=== PATIENT | female | born 1950 | race Caucasian/White ===

== ENCOUNTER → 2016-12-04 | Day surgery (SDC) | payer BC ==
[2016-11-27 11:09] VITALS: Ht 160 cm; Wt 59.1 kg
[~2016-12-04] VITALS: Ht 160 cm; Wt 59.1 kg
[~2016-12-04] MED LIST: 500ML BSS 0.3ML EPI 1:1000PF IRRIG ONE; ACETAMINOPHEN 325 MG TAB PO PRN; AMVISC PLUS 0.8ML SYRINGE INT OCU ONE; ASCO500T3 PO; BETAXOLOL HCL 0.25% OP SUSP PER DROP CHARGE OPR SCH; BRIMONIDINE TART 0.2% OP SOLN PER DROP CHARGE ONE; BSS FLUSH ONE; BUPR150T5 PO; BUPR75TA20 PO; DIPH1TAB PO; DIPH25CA65 PO; DOCU100C PO; DOCU100C31 PO; ENDOCOAT 0.85ML SYRINGE INT OCU ONE; EpINEphrine INJ 1MG/ML AMP 1 MG/ML AMP ONE; KFLS250100 PO; LACTATED RINGER'S 1000ML 500 ML IV SCH; LEVO88TA3 PO; LIDOCAINE 4% OP SOLN DROP CHARGE ONE; LIDOCAINE 4% OP SOLN DROP CHARGE OPR SCH; LIDOCAINE HCL 1% MPF 2 ML VIAL ONE; MIDAZOLAM HCL 1 MG/ML 2ML VIAL ONE; MIX: 4ML BSS 1ML EPI 1:1000 PF INSTIL ONE; MOXIFLOXACIN OPH SOLN PER DROP CHARGE ONE; OCUCOAT 1 ML SOLN IO ONE; OMEG10007 PO; ONDA4TAB10 SL; PANT40TA PO; POVIDONE-IODINE OP SOLN 30 ML BTL ONE; PROPARACAINE 0.5% OP SOLN PER DROP CHARGE OPR SCH; RANI150T2 PO; TIMO0.5S2 OPB; TOBRAMYCIN/DEXAMETHASONE OPH OINT PER APPLN CHARGE ONE; ZOLP10TA PO
[2016-12-04] MEDS: PHENYLEPHRINE HCL 2.5% OP SOLN PER DROP CHARGE OPR SCH ×2 (07:20→07:25)
[2016-12-04] MEDS: TROPICAMIDE 1% OP SOLN PER DROP CHARGE OPR SCH ×2 (07:21→07:26)
[2016-12-04] MEDS: CYCLOPENTOLATE HCL 1% OP SOLN PER DROP CHARGE OPR SCH ×2 (07:22→07:27)
[2016-12-04] MEDS: MOXIFLOXACIN OPH SOLN PER DROP CHARGE OPR SCH ×2 (07:23→07:33)
--- NOTE | 2016-12-04 07:35 | History & Physical Bridge - [place] ---
H&P Re-Evaluation Bridge Note: I have examined the patient, reviewed the History & Physical and in the interval since the performance of the History & Physical I have noted the following changes of clinical significance: No changes noted
--- NOTE | 2016-12-04 08:17 | Discharge Instructions-SurgCtr ---
Discharge Instructions Visit Reason for Visit: Cataract Right Eye Discharge Discharge Diagnosis / Problem: lens implant right eye Discharge Goals Goal(s): Improve function Activity Recommendations Activity Limitations: resume your previous activity Lifting Limitations: no more than 10 pounds Exercise/Sports Limitations: gradually increase as tolerated May Resume Sexual Activity: when tolerated Shower/Bathe: tomorrow Driving or Machine Use: resume 1 day after discharge Anesthesia . Post Anesthesia Instructions: If you have had General Anesthesia or IV Sedation: * Do not drive today. * Resume driving when surgeon permits. * Do not make important decisions or sign legal documents today. * Call surgeon for: 1. Temperature elevations greater than 101 degrees F. 2. Uncontrollable pain. 3. Excessive bleeding. 4. Persistent nausea and vomiting. 5. Medication intolerance (nausea, vomiting or rash). * For nausea and vomiting use only clear liquids such as: tea, soda, bouillon until nausea subsides, then gradually increase diet as tolerated. * If you have any concerns or questions, call your surgeon's office. If physician is unavailable and it is an emergency, call 911 or go to the nearest emergency room. . Instructions / Follow-Up Instructions / Follow-Up ACTIVITY RECOMMENDATIONS: * Light activities. * Mild irritation and blurred vision are common for the first few days. * You may walk outside, read, watch television. * Redness around the white part of the eye is common. MEDICATIONS: Resume previous medications unless instructed otherwise by your surgeon. Start all eye drops at 1 pm today: * Eye drops (today and tomorrow): Prednisone - one drop in operative eye every 3 hours while awake Ofloxacin - one drop in operative eye every 3 hours while awake Bromsite - one drop in operative eye twice a day Continue Glaucoma drop, Timolol, in left eye as directed. SPECIAL CARE INSTRUCTIONS: * Tape plastic shield over eye to sleep at night. Call your doctor at with any concerns or problems. FOLLOW UP VISIT: Follow-up with Dr Grande at [place] office as scheduled. Diet Recommendations Home Diet: no limitations Procedures Procedures Performed: cataract extraction with lens implant Pending Studies Studies pending at discharge: no Medical Emergencies . Who to Call and When: Medical Emergencies: If at any time you feel your situation is an emergency, please call 911 immediately. . Non-Emergent Contact Non-Emergency issues call your: Icing Maker Call Non-Emergent contact if: your pain is not controlled [phone] . . "Provider Documentation" section prepared by Eduar Grande.
--- NOTE | 2016-12-04 08:19 | [facility] Operative Report ---
Operative Report 1. PREOPERATIVE DIAGNOSIS: Pre Senile nuclear cataract, right eye. 2. POSTOPERATIVE DIAGNOSIS: Pre Senile nuclear cataract, right eye. 3. PROCEDURE: Phacoemulsification of right cataract with posterior chamber lens implant, type [employer], model MX60, power +21.0 diopters. ANESTHESIA: Local standby. SURGEON: Dr. Grande. COMPLICATIONS: None. OPERATING TIME: 10 minutes. 4. OPERATION AND FINDINGS: DESCRIPTION OF PROCEDURE: The right pupil was dilated. The anesthetic was administered using a topical technique. The right eye was prepped and draped. A speculum was placed. A clear corneal incision was formed. The chamber was filled with Amvisc Plus and Endocoat. Epinephrine solution was used. A paracentesis was placed. A capsulorrhexis was performed. The nucleus was hydrodissected. The lens was removed with phacoemulsification. Time was 5.63 seconds. The aspiration unit was used to remove the cortex. The capsule was filled with Amvisc Plus. The lens implant was folded and placed into the capsule. The incision was hydrated. The Amvisc was aspirated. The wound was secure. The chamber was deep. The pupil was round. TobraDex ointment and Vigamox solution were placed. The speculum was removed. The patient was returned to the Recovery Room in stable condition. I attest to the content of the Intraoperative Record and any orders documented therein. Any exceptions are noted below. The scribe's documentation has been prepared in my presence, under my direction and personally reviewed by me in its entirety. I confirm that the note above accurately reflects all work, treatment, procedures, and medical decision making performed by me. I personally scribed for Eduar Grande M.D. (ALLIE) on 12/04/16 at 08:19. Electronically submitted by Laquita Juarez ([email or web address]).
[2016-12-04 08:20] VITALS: TEMP 36.8
[2016-12-04 09:01] VITALS: BP 113/75; PULSE 57; O2SAT 97
--- NOTE | 2016-12-04 09:02 | Anesthesia Progress Nt - [facility] ---
Anesthesia Post Op Note Date & Time Dec 04, 2016 at 09:03 Vital Signs Pain Intensity: 0 Vital Signs Past 12 Hours Date Time Temp Pulse Resp B/P Pulse Ox O2 Delivery O2 Flow Rate FiO2 12/04/16 08:20 36.8 64 16 103/70 96 Room Air 12/04/16 07:10 37.2 62 16 103/66 99 Room Air Notes Mental Status: alert / awake / arousable, participated in evaluation Pt Amnestic to Procedure: Yes Nausea / Vomiting: adequately controlled Pain: adequately controlled Airway Patency, RR, SpO2: stable & adequate BP & HR: stable & adequate Hydration State: stable & adequate Anesthetic Complications: no major complications apparent
== END | disposition home or self-care (01) ==
LOC: X.SURG 07:01
PROVIDERS: ATTEND Specialist
DX: H26.9 Unspecified cataract (principal); E03.9 Hypothyroidism, unspecified; Z90.89 Acquired absence of other organs; Z88.2 Allergy status to sulfonamides

== ENCOUNTER 2017-01-21 10:07 | Day surgery (SDC) | payer BC ==
[2017-01-06 10:26] VITALS: BMI 23.0
[~2017-01-21] VITALS: Ht 160 cm; Wt 59.1 kg
[~2017-01-21 10:07] MED LIST changes: -500ML BSS 0.3ML EPI 1:1000PF IRRIG ONE; -ACETAMINOPHEN 325 MG TAB PO PRN; -AMVISC PLUS 0.8ML SYRINGE INT OCU ONE; -BETAXOLOL HCL 0.25% OP SUSP PER DROP CHARGE OPR SCH; -BRIMONIDINE TART 0.2% OP SOLN PER DROP CHARGE ONE; -BSS FLUSH ONE; -BUPR150T5 PO; -DIPH1TAB PO; +DIPH1TAB87 PO; -DIPH25CA65 PO; -DOCU100C31 PO; -ENDOCOAT 0.85ML SYRINGE INT OCU ONE; -EpINEphrine INJ 1MG/ML AMP 1 MG/ML AMP ONE; +LACTATED RINGER'S 1000ML 1,000 ML IV SCH; -LACTATED RINGER'S 1000ML 500 ML IV SCH; -LIDOCAINE 4% OP SOLN DROP CHARGE ONE; -LIDOCAINE 4% OP SOLN DROP CHARGE OPR SCH; -LIDOCAINE HCL 1% MPF 2 ML VIAL ONE; -MIDAZOLAM HCL 1 MG/ML 2ML VIAL ONE; -MIX: 4ML BSS 1ML EPI 1:1000 PF INSTIL ONE; -MOXIFLOXACIN OPH SOLN PER DROP CHARGE ONE; -OCUCOAT 1 ML SOLN IO ONE; -ONDA4TAB10 SL; -POVIDONE-IODINE OP SOLN 30 ML BTL ONE; -PROPARACAINE 0.5% OP SOLN PER DROP CHARGE OPR SCH; -RANI150T2 PO; -TOBRAMYCIN/DEXAMETHASONE OPH OINT PER APPLN CHARGE ONE
[2017-01-21 10:26] VITALS: BP 126/76; PULSE 56; TEMP 36.6; O2SAT 99; Ht 160 cm; Wt 59.1 kg
[2017-01-21] MEDS ORDERED: ONDANSETRON INJ 2 MG/ML 2 ML VIAL IV PRN ×2 (11:45→14:45)
[2017-01-21] MEDS ORDERED: LACTATED RINGER'S 1000ML 1,000 ML IV PRN (11:45)
[2017-01-21] MEDS ORDERED: LIDOCAINE HCL 2% 2 ML VIAL (20MG/ML) ONE (13:13)
[2017-01-21] MEDS ORDERED: PROPOFOL IV EMULSION 10 MG/ML 20 ML VIAL IV ONE (13:13)
[2017-01-21] MEDS ORDERED: MIDAZOLAM HCL 1 MG/ML 2ML VIAL ONE (13:13)
[2017-01-21] MEDS ORDERED: SUCCINYLCHOLINE CHLORIDE 20 MG/ML 10 ML VIAL IV ONE (13:13)
[2017-01-21] MEDS ORDERED: ONDANSETRON INJ 2 MG/ML 2 ML VIAL ONE (13:13)
[2017-01-21] MEDS ORDERED: FENTANYL CITRATE INJ 50 MCG/1 ML 2 ML VIAL ONE ×2 (13:13)
[2017-01-21] MEDS ORDERED: DEXAMETHASONE SOD INJ 4 MG/ML VIAL ONE (13:13)
[2017-01-21] MEDS ORDERED: GELATIN SPONGE SZ 100 ONE (13:24)
[2017-01-21] MEDS ORDERED: LIDOCAINE/EPINEPHRINE 1% 20 ML VIAL ONE (13:25)
[2017-01-21] MEDS ORDERED: BACITRACIN OINT 15 GM TUBE ONE (13:25)
[2017-01-21] MEDS ORDERED: CEFAZOLIN SOD 1 GM VIAL ONE (13:53)
[2017-01-21] MEDS ORDERED: GLYCOPYRROLATE INJ 0.2 MG/ML VIAL ONE (14:06)
[2017-01-21] MEDS ORDERED: SODIUM CHLORIDE 0.9% 1000ML 1,000 ML IV SCH (14:37)
--- NOTE | 2017-01-21 14:37 | Discharge Instructions ---
Discharge Instructions Date of Service Jan 21, 2017. Admission Reason for Admission: Primary Hyerparathyroidism; Serum Calcium Elevated Discharge Discharge Diagnosis / Problem: Parathyroid adenoma, Primary Hyperparathryroidism Discharge Goals Goal(s): Therapeutic intervention Activity Recommendations Activity Limitations: as noted below (No strenuous activity for 2 weeks) Lifting Limitations: no more than 5 pounds Shower/Bathe: keep incision dry Driving or Machine Use: Do not drive while taking narcotic pain medication . Instructions / Follow-Up Instructions / Follow-Up Patient was instructed to begin taking 3 tums three times a day until her follow -up appointment Patient with follow up with Dr. Phillip Lombardo on 01/28/17 as scheduled at the [facility] E[facility] office. Current Hospital Diet Patient's current hospital diet: Discharge Diet Recommended Diet: Regular Diet Pending Studies Studies pending at discharge: no Medical Emergencies . Who to Call and When: Medical Emergencies: If at any time you feel your situation is an emergency, please call 911 immediately. . Non-Emergent Contact Non-Emergency issues call your: Primary Care Provider . . "Provider Documentation" section prepared by Meg Jasso. VTE Core Measure Inpt VTE Proph given/why not?: SCD's
[2017-01-21] MEDS ORDERED: HYDROCODONE/ACETAMOPHEN 5/325MG TAB PO PRN (14:45)
[2017-01-21] MEDS ORDERED: ACETAMINOPHEN 325 MG TAB PO PRN (14:45)
--- NOTE | 2017-01-21 15:31 | [facility] Post Operative Brief Note ---
Immediate Operative Summary Operative Date Jan 21, 2017. Pre-Operative Diagnosis Primary Hyperparathyroidism Post-Operative Diagnosis Primary Hyperparathyroidism Procedure(s) Performed Minimally Invasive Parathyroidectomy with Intraoperative Monitoring of the Recurrent Laryngeal Nerves Surgeon Dr. Phillip Lombardo [employer] Account Assistant Surgeon(s) Meg Jasso Estimated Blood Loss 10 ml Specimens PTH drawn by Dr. Hess at 1342 and sent out of room at 1343, call to lab at 1435 for result of PTH was 143.1. Dr. Lombardo aware Frozen section out of body at 1415, and out of room at 1419 to lab, Dr. Hui called and was given Dr. Bruno cell phone number at [phone] for results. This confirmed parathyroid adenoma. PTH second draw at 1435, per Rafal Maya CRNA and set out of room at 1436. Called lab at 1516 for results of PTH result of 18.[address] Lombardo at 1517 Permanent Specimen A: Parathyroid adenoma Drains None. Anesthesia General via endotracheal tube. Complication(s) None Disposition Recovery Room / PACU
[2017-01-21] MEDS: FENTANYL CITRATE INJ 50 MCG/1 ML 2 ML VIAL IV PRN ×3 (15:35→15:45)
--- NOTE | 2017-01-21 16:05 | Anesthesiology Progress Note ---
Anesthesia Post Op Note Date & Time Jan 21, 2017 at 16:04 Vital Signs Pain Intensity: 3 Vital Signs Past 12 Hours Date Time Temp Pulse Resp B/P Pulse Ox O2 Delivery O2 Flow Rate FiO2 01/21/17 15:55 75 14 143/65 94 Room Air 01/21/17 15:45 71 17 148/72 100 Mask 10 01/21/17 15:35 77 15 151/75 100 Mask 10 01/21/17 15:27 36.6 81 14 155/72 100 Mask 10 01/21/17 10:26 36.6 56 20 126/76 99 Room Air Notes Mental Status: alert / awake / arousable, participated in evaluation Pt Amnestic to Procedure: Yes Nausea / Vomiting: adequately controlled Pain: adequately controlled Airway Patency, RR, SpO2: stable & adequate BP & HR: stable & adequate Hydration State: stable & adequate Anesthetic Complications: no major complications apparent
[2017-01-21 16:10] VITALS: BP 126/68; PULSE 76; TEMP 36.6; O2SAT 96
[2017-01-21 16:40] VITALS: BP 127/61; PULSE 73; O2SAT 99
--- NOTE | 2017-01-21 17:05 | OPERATIVE REPORT ---
DATE OF OPERATION: 01/21/2017 SURGEON: Phillip Lombardo MD IRON CUTTER: Meg Jasso PA-C ANESTHESIA: General via endotracheal tube. PROCEDURE PERFORMED: Left minimally invasive parathyroidectomy with intraoperative monitoring of the recurrent laryngeal nerves. INDICATIONS FOR THE PROCEDURE: This is a 66-year-old woman who had had radiation to the neck in 1950s for chronic tonsillitis and also previously undergone total thyroidectomy. She developed hypercalcemia and a full workup concluded that she most likely had a parathyroid adenoma as the cause of her primary hyperparathyroidism. A full informed consent including indications, risks, benefits, and alternatives was provided in a relaxed office setting. There was an opportunity for questions and answers. REFERRING PLASMA TABLE OPERATOR: Pauline Marks MD at [facility]. REFERRING PRIMARY CARE: Breezy Crabtree MD at [facility]. PREOPERATIVE DIAGNOSIS: Left-sided parathyroid adenoma. POSTOPERATIVE DIAGNOSIS: Same. SPECIMENS SENT: Left parathyroid adenoma for frozen section as well as for permanent section. The frozen section confirmed parathyroid adenoma. Rapid PTH was drawn at the start of the case and the level was 143.1. Fifteen minutes after removal of her parathyroid adenoma, her PTH was 18.6. COUNTS: Sponge and needle count was correct at the end of the case. DRAINS: None. COMPLICATIONS: None. DESCRIPTION OF PROCEDURE: The patient had the planned incision drawn while she was sitting up in the preoperative area and I decided to use the left site of patient's previous thyroidectomy incision. She was taken to the operating room and had an uneventful endotracheal intubation with a [place] Scope to make sure that the endotracheal tube was positioned well to facilitate and monitor the recurrent laryngeal nerves. After a shoulder roll was placed, she was injected with 9 mL of 1% lidocaine 1:100,000 parts of epinephrine into the planned incision site. She was then prepped and draped in a standard fashion. A #15 blade was used to make an incision down through skin, subcutaneous tissue and platysma. Sternohyoid and sternothyroid muscles were retracted laterally and I went directly towards the site from her 3-dimensional reconstruction of her CT scan and SPECT PET CT and was able to easily identify the adenoma. This was dissected away with the use of LigaSure device, bipolar electrocautery, peanuts, and sharp dissection with scissors. The parathyroid adenoma was removed in its entirety. I irrigated the wound bed. I did not attempt to locate the recurrent laryngeal nerves, as they were deep to my surgical site and there was scar tissue. After removing all irrigation fluid, I packed the wound bed with Surgicel and closed the strap muscles with running 3-0 Vicryl suture. Platysma was closed with running 4-0 chromic suture. The dermis was closed using 4-0 chromic in a simple inverted buried technique. Skin was closed with interrupted 5-0 nylon and running 6-0 nylon suture. I then waited about 30 minutes for the rapid PTH to return and it confirmed a drop from 143.1 at the start of the surgery before dissection to 18.6. The combined drop of over 50% plus the frozen section analysis provided confidence that her primary hyperthyroidism was resolved. The surgical site was cleaned with hydrogen peroxide followed by alcohol and then dried. Bacitracin ointment followed by Telfa and Tegaderm was positioned. The patient was allowed to wake up on her own and was transported to recovery in no apparent distress. I attest to the content of the Intraoperative Record and any orders documented therein. Any exceptions are noted below. BRENDA
[2017-01-21 17:10] VITALS: BP 113/71; PULSE 71; TEMP 36.5; O2SAT 97
== END 2017-01-21 17:30 | disposition home or self-care (01) ==
LOC: C.ACU 10:07
PROVIDERS: ATTEND Otolaryngology
DX: D35.1 Benign neoplasm of parathyroid gland (principal); E21.0 Primary hyperparathyroidism; Z90.89 Acquired absence of other organs; Z90.710 Acquired absence of both cervix and uterus; Z98.49 Cataract extraction status, unspecified eye; F32.9 Major depressive disorder, single episode, unspecified; Z88.2 Allergy status to sulfonamides

== ENCOUNTER 2017-06-28 17:08 | Emergency (ER) | payer BC ==
[~2017-06-28] VITALS: Ht 157.5 cm; Wt 63.0 kg
[~2017-06-28 17:08] MED LIST changes: +DIPH1TAB PO; -DIPH1TAB87 PO; -LACTATED RINGER'S 1000ML 1,000 ML IV SCH
[2017-06-28 17:12] VITALS: TEMP 36.9; Ht 157.5 cm; Wt 63.0 kg
[2017-06-28] MEDS ORDERED: BUPR150T5 PO (17:28)
[2017-06-28] MEDS ORDERED: RANI150T2 PO (17:28)
[2017-06-28] MEDS ORDERED: ONDANSETRON 4MG OD TAB PO STA (17:46)
[2017-06-28] MEDS ORDERED: ALUMINUM/MAGNESIUM SUSP 30 ML UDC ONE (17:55)
[2017-06-28] MEDS ORDERED: LIDOCAINE HCL 2% VISC SOLN 20 ML UDC ONE (17:55)
[2017-06-28] MEDS ORDERED: GI COCKTAIL PO ONE (18:00)
[2017-06-28] MEDS ORDERED: SODIUM CHLORIDE 0.9% 1000ML 1,000 ML IV ONE (18:15)
[2017-06-28 18:31] LABS: BASO % 0.5 %; BASO ABS # 0.03 K/uL (0-0.2); COMPLETE YES; EOS % 0.9 %; HEMATOCRIT 37.1 % (37-47); IG% 0.2 %; LYMPH % 32.6 %; LYMPH ABS # 1.86 K/uL (1.2-3.4); MEAN CELL VOLUME 88.5 fL (80-100); MEAN CORPUSCULAR HEMOGLOBIN 31.5 pg (25-34); MEAN CORPUSCULAR HGB CONC 35.6 g/dl (32-36); MONO % 6.1 %; NEUT % 59.7 %; PLATELET COUNT 239 K/uL (130-400); RED BLOOD COUNT 4.19 M/uL (4.2-5.4)
--- NOTE | 2017-06-28 18:32 | DIAGNOSTIC IMAGING REPORT ---
CHEST ONE VIEW PORTABLE CLINICAL HISTORY: Atypical chest and neck pain. COMPARISON STUDY: 01/09/2016 FINDINGS: The cardiac and mediastinal contours are normal. There is no evidence of focal pulmonary consolidation. There is no evidence of failure. No pleural effusions are visualized.[ IMPRESSION: No active disease in the chest. Electronically signed by: Ronaldo Oconnor M.D. 06/28/2017 6:31 PM Dictated Date/Time: 06/28/2017 6:30 PM
[2017-06-28 18:52] LABS: ALT/SGPT 23 U/L (12-78); BLOOD UREA NITROGEN 10 mg/dl (7-18); BUN/CREATININE RATIO 14.6 (10-20); CALCIUM 9.6 mg/dl (8.5-10.1); CARBON DIOXIDE 27 mmol/L (21-32); CHLORIDE 96 mmol/L (98-107); CREATININE 0.71 mg/dl (0.60-1.20); GLUCOSE 94 mg/dl (70-99); POTASSIUM 3.9 mmol/L (3.5-5.1); SODIUM 129 mmol/L (136-145)
[2017-06-28 18:52] LABS: URINE APPEARANCE CLOUDY (CLEAR); URINE BILIRUBIN NEG (NEG); URINE COLOR YELLOW; URINE EPITHELIAL CELL AUTO 0-5 /lpf (0-5); URINE NITRITE NEG (NEG); URINE PH 8.5 (4.5-7.5); URINE SPECIFIC GRAVITY 1.007 (1.000-1.030); UROBILINOGEN NEG (NEG); ZZUR CULT IF INDIC CLEAN CATCH NO
[2017-06-28 18:59] LABS: MANUAL MICROSCOPIC REQUIRED? NO; REVIEW REQ? NO
[2017-06-28 19:03] LABS: ALB/GLOB RATIO 1.5 (0.9-2); ALKALINE PHOSPHATASE 84 U/L (45-117); AST/SGOT 16 U/L (15-37)
[2017-06-28] MEDS ORDERED: ONDA4TAB10 SL (19:25)
[2017-06-28] MEDS ORDERED: ONDANSETRON HOME PACK 4MG OD TAB PO ONE (19:30)
[2017-06-28 20:18] VITALS: BP 139/86; PULSE 58; O2SAT 99
--- NOTE | 2017-06-30 14:15 | EMERGENCY ROOM VISIT NOTE ---
History First contact with patient: 17:32 Chief Complaint: GI ASSESSMENT Stated Complaint: DIFFICULTY SWALLOWING,BURNING IN CHEST AREA Nursing Triage Summary: I have been dealing with acid reflux for the past 3-4 weeks. I am having trouble swallowing. "if feels like it is swollen I have burning in my throat all time and it is affecting my voice." having difficulty swallowing my food. I have been put on meds for acid reflux but it doesnt seem to be helping History of Present Illness The patient is a 66 year old female who presents to the Emergency Room with complaints of burning in her chest and throat for the past 3-4 weeks. The patient states that she has been seen multiple times by her primary care physician and diagnosed with acid reflux. She is on Protonix daily for this and just started Zantac 2 days ago. The patient states that it is difficult for her to swallow at times because of the discomfort. She is able to handle her own secretions and has not noticed changes in her voice. She has not had fever or chills. There is a past history of parathyroid disease with thyroidectomy, however this was sometime ago. She has not felt any mass or lumps in her neck. The patient has been breathing as normal. She does not have distinct chest pressure or tightness, again describing this as a burning sensation. She does not report significant abdominal pain. She rates her overall discomfort an 8/10. Review of Systems More than 10 systems were reviewed and otherwise negative with the exception of history of present illness. Past Medical/Surgical History Medical Problems: (1) Pre-diabetes Surgical Problems: (1) H/O thyroidectomy (2) History of appendectomy (3) Hx of cholecystectomy (4) Hx of total hysterectomy Family History Cancer Diabetes mellitus Gallbladder disease Heart disease Hypertension Kidney disease Social History Smoking Status: Never Smoker Alcohol Use: occasionally Marital Status: Housing Status: lives with significant other Occupation Status: employed Current/Historical Medications Scheduled Bupropion Hcl (Bupropion Hcl Xl), 150 MG PO DAILY Docusate Sodium (Stool Softener), 1-2 CAP PO HS Levothyroxine Sodium (Levothyroxine Sodium), 1 TAB PO QAM Ondasetron Odt (Zofran Odt), 4 MG SL Q6H Pantoprazole (Protonix), 40 MG PO QAM Ranitidine HCl (Ranitidine HCl), 150 MG PO DAILY Timolol Gfs 0.5% Oph (Timoptic-Xe 0.5% Oph), 1 DROP OPB QAM Scheduled PRN Zolpidem Tartrate (Ambien), 5 MG PO HS PRN for Sleep Physical Exam Vital Signs Date Time Temp Pulse Resp B/P (MAP) Pulse Ox O2 Delivery O2 Flow Rate FiO2 06/28/17 20:18 58 18 139/86 99 06/28/17 18:53 82 18 134/76 97 Room Air 06/28/17 17:12 36.9 102 18 161/92 97 Room Air Pain Rating (0-10): 6.0 Physical Exam VITALS: Vitals are noted on the nurse's note and reviewed by myself. Vital signs stable. GENERAL: Well-developed, well-nourished, female, who is in no acute distress and resting comfortably. Patient is cooperative with the examination. HEAD: Normocephalic atraumatic. EARS: External ear normal. External auditory canals clear, tympanic membranes pearly flaherty without erythema or effusion bilaterally. EYES: Pupils equal round and reactive to light and accommodation. Conjunctivae without injection, sclerae without icterus. Extraocular movements intact. NOSE: Patent, turbinates without inflammation or discharge. MOUTH: Mucous membranes moist. Tonsils are not enlarged. Pharynx without erythema, blood, or exudate. Uvula midline. Airway patent. NECK: Supple without nuchal rigidity. No lymphadenopathy. Cervical spine is nontender. No palpable mass. HEART: Regular rate and rhythm without murmurs gallops or rubs. LUNGS: Clear to auscultation bilaterally without wheezes, rales or rhonchi. No retractions or accessory muscle use. ABDOMEN: Positive normal bowel sounds x 4. Soft, nontender, without masses or organomegaly. No guarding or rebound tenderness. Medical Decision & Procedures ER Provider Diagnostic Interpretation: CHEST ONE VIEW PORTABLE CLINICAL HISTORY: Atypical chest and neck pain. COMPARISON STUDY: 01/09/2016 FINDINGS: The cardiac and mediastinal contours are normal. There is no evidence of focal pulmonary consolidation. There is no evidence of failure. No pleural effusions are visualized.[ IMPRESSION: No active disease in the chest. Laboratory Results 06/28/17 18:22 Red Blood Count 4.19, Mean Corpuscular Volume 88.5, Mean Corpuscular Hemoglobin 31.5, Mean Corpuscular Hemoglobin Concent 35.6, Mean Platelet Volume 9.0, Neutrophils (%) (Auto) 59.7, Lymphocytes (%) (Auto) 32.6, Monocytes (%) (Auto) 6.1, Eosinophils (%) (Auto) 0.9, Basophils (%) (Auto) 0.5, Neutrophils # (Auto) 3.40, Lymphocytes # (Auto) 1.86, Monocytes # (Auto) 0.35, Eosinophils # (Auto) 0.05, Basophils # (Auto) 0.03 06/28/17 18:22 Test 06/28/17 18:22 06/28/17 18:40 White Blood Count 5.70 K/uL (4.8-10.8) Red Blood Count 4.19 M/uL (4.2-5.4) Hemoglobin 13.2 g/dL (12.0-16.0) Hematocrit 37.1 % (37-47) Mean Corpuscular Volume 88.5 fL (80-100) Mean Corpuscular Hemoglobin 31.5 pg (25-34) Mean Corpuscular Hemoglobin Concent 35.6 g/dl (32-36) Platelet Count 239 K/uL (130-400) Mean Platelet Volume 9.0 fL (7.4-10.4) Neutrophils (%) (Auto) 59.7 % Lymphocytes (%) (Auto) 32.6 % Monocytes (%) (Auto) 6.1 % Eosinophils (%) (Auto) 0.9 % Basophils (%) (Auto) 0.5 % Neutrophils # (Auto) 3.40 K/uL (1.4-6.5) Lymphocytes # (Auto) 1.86 K/uL (1.2-3.4) Monocytes # (Auto) 0.35 K/uL (0.11-0.59) Eosinophils # (Auto) 0.05 K/uL (0-0.5) Basophils # (Auto) 0.03 K/uL (0-0.2) RDW Standard Deviation 37.5 fL (36.4-46.3) RDW Coefficient of Variation 11.6 % (11.5-14.5) Immature Granulocyte % (Auto) 0.2 % Immature Granulocyte # (Auto) 0.01 K/uL (0.00-0.02) Anion Gap 6.0 mmol/L (3-11) Est Creatinine Clear Calc Drug Dose 69.8 ml/min Estimated GFR () 104.3 Estimated GFR (Non- 90.0 BUN/Creatinine Ratio 14.6 (10-20) Calcium Level 9.6 mg/dl (8.5-10.1) Total Bilirubin 0.8 mg/dl (0.2-1) Aspartate Amino Transf (AST/SGOT) 16 U/L (15-37) Alanine Aminotransferase (ALT/SGPT) 23 U/L (12-78) Alkaline Phosphatase 84 U/L (45-117) Troponin I < 0.015 ng/ml (0-0.045) Total Protein 6.9 gm/dl (6.4-8.2) Albumin 4.2 gm/dl (3.4-5.0) Globulin 2.7 gm/dl (2.5-4.0) Albumin/Globulin Ratio 1.5 (0.9-2) Lipase 205 U/L (73-393) Thyroid Stimulating Hormone (TSH) 1.210 uIu/ml (0.300-4.500) Urine Color YELLOW Urine Appearance CLOUDY (CLEAR) Urine pH 8.5 (4.5-7.5) Urine Specific [place] 1.007 (1.000-1.030) Urine Protein NEG (NEG) Urine Glucose (UA) NEG (NEG) Urine Ketones NEG (NEG) Urine Occult Blood NEG (NEG) Urine Nitrite NEG (NEG) Urine Bilirubin NEG (NEG) Urine Urobilinogen NEG (NEG) Urine Leukocyte Esterase NEG (NEG) Urine WBC (Auto) 0 /hpf (0-5) Urine RBC (Auto) 0-4 /hpf (0-4) Urine Hyaline Casts (Auto) 0 /lpf (0-5) Urine Epithelial Cells (Auto) 0-5 /lpf (0-5) Urine Bacteria (Auto) NEG (NEG) Date/Time Source Procedure Growth Status 06/28/17 17:40 Throat Group A Streptococcus Screen - Final SPECIMEN NEGATIVE FOR GROUP A BETA ST... Complete 06/28/17 17:40 Throat Group A Streptococcus Screen (CORINNA) - Final NO BETA STREP. ISOLATED. Complete Medications Administered Medications (Trade) Dose Ordered Sig/Zuleika Route Start Time Stop Time Status Last Admin Dose Admin Ondansetron HCl (Zofran Odt) 4 mg NOW STAT PO 06/28/17 17:46 9/16/17 17:47 DC 06/28/17 17:46 4 MG Miscellaneous Medication (Gi Cocktail) 24 ml NOW ONCE PO 06/28/17 18:00 06/28/17 18:01 DC 06/28/17 18:00 24 ML Sodium Chloride 1,000 ml @ 999 mls/hr Q1H1M ONCE IV 06/28/17 18:15 06/28/17 19:15 DC 06/28/17 18:15 999 MLS/HR Ondansetron HCl (ZOFRAN ODT 4MG Home Pack) 1 homepack UD ONCE PO 06/28/17 19:30 06/28/17 19:31 DC 06/28/17 20:15 1 HOMEPACK ECG Change: Sinus bradycardia@55bpm Otherwise normal ECG When compared with ECG of 29-APR-2016 15:08, No significant change was found Confirmed by LIU MANZO MD ([id number]) on 06/29/2017 9:33:23 AM ED Course Physical exam and history were performed. Nursing notes, EMR, and Medication List were personally reviewed. Patient appears to have chest and throat burning for the past 3-4 weeks. The patient is evidently on Protonix and just started Zantac. The patient is able to handle her own secretions and does not have obvious airway impingement. There is no evidence of Zane's on examination, nor is there a palpable mass within the neck. EKG was performed and showed sinus bradycardia [address] elevation or evidence of ischemia. IV access was established and labs were obtained. The patient was given a GI cocktail and Zofran here in the department. The patient s as above and was reviewed. She does not have a significantly elevated white blood cell count, gross anemia, bandemia, or significant electrolyte imbalance. Lipase and transaminases are nondiagnostic. TSH is euthyroid state. Troponin 1 is negative. Urine is without evidence of infection. Chest x-ray did not show acute findings. Overall the patient appears stable for discharge home. I do not appreciate an emergent cardiopulmonary event causing her symptoms. She does not have airway compromise or evidence of gross infection. I do suspect that her symptoms are related to GERD, and she will likely need outpatient upper endoscopy for further management. I discussed this with the patient and recommended that she follow with her primary care physician to establish this. She will be given a short course of Zofran to assist with some nausea symptoms that have been associated with her GERD. The patient was otherwise thoroughly invited back to the ER with any new, worsening, or concerning symptoms. The chart was completed utilizing [employer] Voice Recognition Software. Grammatical errors, random word insertions, pronoun errors, and incomplete sentences are an occasional consequence of this system due to software limitations, ambient noise, and hardware issues. Any formal questions or concerns about the content, text, or information contained within the body of this dictation should be directly addressed to the provider for clarification. . Medical Decision Differential diagnosis: Etiologies such as GERD, cardiac ischemia, aortic dissection, pulmonary embolism , pneumonia, pneumothorax, musculoskeletal, infections, pericarditis, myocarditis, esophageal rupture, gastrointestinal, as well as others were entertained. Medication Reconcilliation Current Medication List: was personally reviewed by me Blood Pressure Screening Blood pressure disposition: Did not require urgent referral Impression Primary Impression: GERD (gastroesophageal reflux disease) Departure Information Dispostion Home / Self-Care Condition GOOD Prescriptions Ondasetron Odt (ZOFRAN ODT) 4 Mg Tab 4 MG SL Q6H for Nausea, #12 TAB Prov: Kevin Obando PA-C 06/28/17 Forms HOME CARE DOCUMENTATION FORM, IMPORTANT VISIT INFORMATION Patient Instructions My [facility] Additional Instructions You were seen and evaluated today on an emergency basis only. This is not a substitute for, or an effort to provide, complete comprehensive medical care. It is not possible to recognize and treat all injuries or illnesses in a single emergency department visit. For this reason it is recommended that you followup with your primary care physician's office on Friday or Friday for ongoing care and evaluation. You may be a good candidate for outpatient upper endoscopy. Discussed this with your primary care physician. Continue your Protonix and Zantac as prescribed. Zofran 1 tablet every 6 hrs as needed for nausea. You are welcome to return to the emergency department anytime with new, worsening, or concerning symptoms.
== END 2017-06-28 20:20 | disposition home or self-care (01) ==
LOC: C.EDB 17:09
DX: K21.9 Gastro-esophageal reflux disease without esophagitis (principal); Z79.899 Other long term (current) drug therapy; E89.0 Postprocedural hypothyroidism; R73.03 Prediabetes; Z90.49 Acquired absence of other specified parts of digestive tract; Z90.710 Acquired absence of both cervix and uterus; Z80.9 Family history of malignant neoplasm, unspecified; Z82.49 Family history of ischemic heart disease and other diseases of the circulatory system; Z83.3 Family history of diabetes mellitus

== ENCOUNTER → 2017-10-21 | Outpatient (CLI) | payer BC ==
[~2017-10-21] MED LIST changes: -ASCO500T3 PO; +BUPR150T5 PO; -BUPR75TA20 PO; -DIPH1TAB PO; -KFLS250100 PO; -OMEG10007 PO; +ONDA4TAB10 SL; +RANI150T2 PO
--- NOTE | 2017-10-21 08:57 | DIAGNOSTIC IMAGING REPORT ---
GI SERIES W/AIR ROUTINE CLINICAL HISTORY: Dysphagia. Gastroesophageal reflux. COMPARISON STUDY: None. FLUOROSCOPY TIME: 2 minutes. FINDINGS: 19 fluoroscopic images were obtained. Esophageal motility was normal. No esophageal mass or stricture was identified. Gastric fold pattern was normal. No hiatal hernia was identified. No reflux was elicited. Duodenum was unremarkable. Caliber of opacified jejunum was normal. There are cholecystectomy clips. IMPRESSION: Unremarkable double contrast upper GI series. Electronically signed by: Serge Tan M.D. 10/21/2017 8:56 AM Dictated Date/Time: 10/21/2017 8:54 AM
== END | disposition home or self-care (01) ==
LOC: C.RAD 08:18
PROVIDERS: ATTEND Registered Nurse
DX: K21.9 Gastro-esophageal reflux disease without esophagitis (principal); R13.12 Dysphagia, oropharyngeal phase

== ENCOUNTER → 2017-11-27 | Outpatient (CLI) | payer BC ==
--- NOTE | 2017-11-28 14:59 | MAMMOGRAPHY REPORT ---
BILATERAL DIGITAL SCREENING MAMMOGRAM TOMOSYNTHESIS WITH CAD: 11/27/2017 CLINICAL HISTORY: Routine screening. The patient reported to the technologist that she has had tende rness in the left nipple area for approximately 6 months. TECHNIQUE: Breast tomosynthesis in addition to standard 2D mammography was performed. Current study was also evaluated with a Computer Aided Detection (CAD) system. COMPARISON: Comparison is made to exams dated: 02/14/2017 mammogram, 11/15/2014 mammogram, 11/12/2013 jerald mogram, 11/11/2012 mammogram, 11/07/2011 mammogram, and 10/08/2007. BREAST COMPOSITION: The tissue of both breasts is heterogeneously dense, which may obscure small mas ses. FINDINGS: No suspicious masses, calcifications, or areas of architectural distortion are noted in ei ther breast. There has been no significant interval change compared to prior exams. IMPRESSION: ACR BI-RADS CATEGORY 1: NEGATIVE There is no mammographic evidence of malignancy. A 1 year screening mammogram is recommended. Also r ecommend clinical follow-up for left breast tenderness reported by the patient. The patient will receive written notification of the results. Approximately 10% of breast cancers are not detected with mammography. A negative mammographic report should not delay biopsy if a clinically suggestive mass is present. Cinthia Santoro M.D. /:11/27/2017 15:02:57 Bindery Machine Setter/Set Up Operator: Nickie LOPEZR M, [facility] letter sent: Normal 1/2 BI-RADS Code: ACR BI-RADS Category 1: Negative
== END | disposition home or self-care (01) ==
LOC: C.MAMM 13:36
PROVIDERS: ATTEND Family Medicine
DX: Z12.31 Encounter for screening mammogram for malignant neoplasm of breast (principal)